=== PATIENT | female | born 2000 | race Two or more races ===

== ENCOUNTER 2023-11-24 15:31 | Emergency (ER) | payer SELFPAY ==
[~2023-11-24] VITALS: Ht 157.5 cm; Wt 56.0 kg
[2023-11-24 15:36] VITALS: BP 118/85; PULSE 98; RESP 18; TEMP 98.2; O2SAT 99
== END 2023-11-24 20:07 | disposition home or self-care (01) ==
LOC: ER 17:07
DX: R05.9 Cough, unspecified (principal)
CPT/HCPCS: 99281